=== PATIENT | female | born 1995 ===

== ENCOUNTER → 2021-02-25 | Outpatient (CLI) | payer SELFPAY ==
[2021-02-28 01:10] LABS: CHLAMYDIA TRACHOMATIS, NAA Negative (Negative)
== END ==
LOC: LAB SHORT 19:22
PROVIDERS: Registered Nurse Community Health
DX: Z34.91 Encounter for supervision of normal pregnancy, unspecified, first trimester (principal)
CPT/HCPCS: 87491; 87591

== ENCOUNTER → 2021-06-30 | Outpatient (CLI) | payer OTHER | LOC: LAB SHORT 15:39 → LAB 15:39 | DX: Z34.02 Encounter for supervision of normal first pregnancy, second trimester (principal) | CPT/HCPCS: 87081; 87150 ==

== ENCOUNTER 2021-07-28 12:35 | Inpatient (IN) | payer OTHER ==
[~2021-07-28] VITALS: Ht 160 cm; Wt 73.5 kg
[2021-07-28 14:12] LABS: BASOPHILS ABSOLUTE AUTO 0.03 K/mm3 (0.00-0.23); BASOPHILS PERCENT AUTO 0 % (0-2); EOSINOPHILS ABSOLUTE AUTO 0.11 K/mm3 (0.00-0.68); EOSINOPHILS PERCENT AUTO 1 % (0-6); Hematocrit 35.5 % (33.0-51.0); Hemoglobin 11.9 g/dL (11.5-16.0); IMMATURE GRAN ABSOLUTE AUTO 0.08 K/mm3 (0.00-0.10); IMMATURE GRAN PERCENT AUTO 1 % (0-1); LYMPHOCYTES PERCENT AUTO 15 % (21-46); MONOCYTES ABSOLUTE AUTO 0.79 K/mm3 (0.16-1.47); MONOCYTES PERCENT AUTO 7 % (4-13); Mean Corpuscular HGB Conc 33.5 g/dL (31.5-36.5); Mean Corpuscular Volume 87 fL (80-100); Mean Platelet Volume 11.2 fL (9.1-12.4); NEUTROPHILS ABSOLUTE AUTO 8.66 K/mm3 (1.96-9.15); NEUTROPHILS PERCENT AUTO 76 % (41-73); Platelet Count 183 K/mm3 (150-400); RDW Coefficient Variation 12.8 % (11.7-14.2); RDW Standard Deviation 40.2 fL (35.1-46.3); White Blood Cell Count 11.37 K/mm3 (4.00-11.30)
[2021-07-28 17:23] LABS: SARS-Cov-2 (COVID-19) PCR, MMC POSITIVE (NEGATIVE)
[2021-07-29 13:24] LABS: Hematocrit 30.1 % (33.0-51.0); Hemoglobin 10.5 g/dL (11.5-16.0); Mean Corpuscular HGB 29.7 pg (26.0-34.0); Mean Corpuscular HGB Conc 34.9 g/dL (31.5-36.5); Mean Corpuscular Volume 85 fL (80-100); Mean Platelet Volume 11.1 fL (9.1-12.4); Platelet Count 191 K/mm3 (150-400); RDW Coefficient Variation 13.1 % (11.7-14.2); Red Blood Cell Count 3.53 M/mm3 (3.80-5.20)
--- NOTE | 2021-07-29 17:48 | NUR ---
PATIENT AT SITTING AT BEDSIDE, DENIES NEEDING ANYTHING, ON PHONE WITH MOTHER, HAVING FOOD DELIVERED.
--- NOTE | 2021-07-30 08:00 | NUR ---
script called in to [facility], left a message on the machine
[2021-07-30] MEDS ORDERED: IBUP800 PO (08:11)
--- NOTE | 2021-07-30 11:18 | NUR ---
DC HOME, AMBULATE OUT, HAS QUARTINE INSTRUCTIONS, DECLINES NEEDING ANYTHING, ENCOURAGED TO CALL [facility] IF HAS ANY QUESTIONS. HAS PPFU TOMORROW.
--- NOTE | 2021-07-30 11:27 | NUR ---
PT DENIES ANY OF THE PRESSURE FEELING WHEN BEING UP LIKE YESTERDAY, YESTERDAY IT STOPPED AFTER LUNCH TIME, AND HASNT HAD ANY SINCE, BIOX IS 98-99% THIS MORNING, PT REPORTS FEELS GOOD, JUST SORE WITH CRAMPS AND LOWER BACK.
== END 2021-07-30 11:25 | disposition home or self-care (01) | DRG 805 ==
LOC: OBS 12:35 → BC 12:35 → OBS 12:51 → BC 12:56
PROVIDERS: ADMIT Registered Nurse Community Health
PROC: 10E0XZZ Delivery of Products of Conception, External Approach (ICD-10-PCS; principal; 2021-07-29)
PROC: 0HQ9XZZ Repair Perineum Skin, External Approach (ICD-10-PCS; 2021-07-29)
PROC: 0UQMXZZ Repair Vulva, External Approach (ICD-10-PCS; 2021-07-29)
DX: O24.420 Gestational diabetes mellitus in childbirth, diet controlled (principal); U07.1 COVID-19; Z37.0 Single live birth; O98.52 Other viral diseases complicating childbirth; O70.0 First degree perineal laceration during delivery; O36.8330 Maternal care for abnormalities of the fetal heart rate or rhythm, third trimester, not applicable or unspecified; O99.62 Diseases of the digestive system complicating childbirth; Z3A.39 39 weeks gestation of pregnancy
CPT/HCPCS: 36415; 82947; 85025; 85027; 86850; 86900; 86901; A9270; J1885; J2590; J7120; U0004

== ENCOUNTER → 2023-06-13 | Outpatient (CLI) | payer OTHER ==
[~2023-06-13] MED LIST: IBUP800 PO
== END ==
LOC: LAB SHORT 14:51 → LAB 14:51
PROVIDERS: Registered Nurse Community Health
DX: Z12.4 Encounter for screening for malignant neoplasm of cervix (principal)
CPT/HCPCS: G0145